=== PATIENT | female | born 1995 | race Caucasian/White ===

== ENCOUNTER 2018-06-16 20:59 | Emergency (ER) | payer OTHER ==
[2018-06-16] MEDS ORDERED: Sodium Chloride 0.9% 1000 ML 1,000 ML IV STA (21:51)
--- NOTE | 2018-06-16 21:54 | ERPHSYRPT ---
- History of Present Illness Time Seen by Provider: 06/16/18 21:46 Historian: patient Exam Limitations: no limitations Patient Subjective Stated Complaint: PT C/O RT FLANK PAIN STARTING TODAY 1430, ACCOMPANYIED BY NAUSEA, VOMIT X 2, AND PELVIC PAIN. HX KIDNEY STONE PT STATES "IT FEELS LIKE WHEN I HAD A KIDNEY STONE BACK IN FEBRUARY". DENIES FEVER, DENIES PAINFUL URINATION. Triage Nursing Assessment: PINK/WARM/DRY, RESP EASY, A&OX4, STEADY GAIT, NO DISTRESS NOTED AT THIS TIME. Physician History: 22-year-old white female with history of diabetes type 2, psoriasis, who has a history of kidney stones arrives with complaint of right flank pain described as sharp and a pressure symptoms going on since 2:30 this evening. She denies any urinary symptoms. She does state that she had 2 episodes of vomiting. Past medical history includes diabetes type 2, psoriasis. Past surgical history includes tonsillectomy. Patient states she has not had a period for some time she is on Depo-Provera shots Timing/Duration: today (this afternoon) Activities at Onset: none Quality: pressure, sharpness Abdominal Pain Onset Location: flank (right flank) Pain Radiation: no radiation Severity of Pain-Max: moderate Severity of Pain-Current: moderate Modifying Factors: Improves With: nothing Associated Symptoms: back (right flank pain), nausea, vomiting, No chest pain, No diaphoresis, No diarrhea, No fever/chills, No fatigue, No headache, No heartburn, No loss of appetite, No neck pain, No rash, No shortness of breath, No syncope, No weakness Previous symptoms: same symptoms as today (kidney stone in the past) Allergies/Adverse Reactions: No Known Drug Allergies Allergy (Unverified 06/16/18 21:07) Home Medications: Metformin HCl Xr 500 mg [Glucophage XR 500 MG] 2 tab PO DAILY 06/16/18 [ History] Hx Tetanus, Diphtheria Vaccination/Date Given: Yes Hx Influenza Vaccination/Date Given: No Hx Pneumococcal Vaccination/Date Given: No Immunizations Up to Date: Yes - Review of Systems Constitutional: No Fever, No Chills Eyes: No Symptoms Ears, Nose, & Throat: No Symptoms Respiratory: No Cough, No Dyspnea Cardiac: No Chest Pain, No Edema, No Syncope Abdominal/Gastrointestinal: Abdominal Pain (lower abdominal cramping), Nausea, Vomiting, Other (right flank pain), No Diarrhea, No Constipation, No Hematemesis , No Hematochezia, No Melena, No Dysphagia, No Appetite Changes Genitourinary Symptoms: Flank Pain (right flank pain), No Dysuria, No Frequency , No Hematuria, No Hesitancy, No Incontinence, No Urgency, No Urinary Retention Musculoskeletal: No Back Pain, No Neck Pain Skin: No Rash Neurological: No Dizziness, No Focal Weakness, No Sensory Changes Psychological: No Symptoms Endocrine: No Symptoms All Other Systems: Reviewed and Negative - Past Medical History Pertinent Past Medical History: Yes Endocrine Medical History: Diabetes Type II Other Medical History: PSORIASIS - Past Surgical History Past Surgical History: Yes - Social History Smoking Status: Never smoker Exposure to second hand smoke: Yes Drug Use: marijuana Patient Lives Alone: No - Female History Hx Last Menstrual Period: "YEARS, ON DEPO SHOT" Hx Now: No - Nursing Vital Signs Nursing Vital Signs: Initial Vital Signs Temperature 98.0 F 06/16/18 21:09 Pulse Rate 102 H 06/16/18 21:09 Respiratory Rate 16 06/16/18 21:09 Blood Pressure 170/92 06/16/18 21:09 O2 Sat by Pulse Oximetry 99 06/16/18 21:09 Pain Scale Pain Intensity 3 - Physical Exam General Appearance: no apparent distress, alert Eye Exam: PERRL/EOMI, eyes nml inspection Ears, Nose, Throat Exam: normal ENT inspection, pharynx normal, moist mucous membranes Neck Exam: normal inspection, non-tender, supple, full range of motion Respiratory Exam: normal breath sounds, lungs clear, No respiratory distress Cardiovascular Exam: regular rate/rhythm, normal heart sounds, capillary refill <2 sec Gastrointestinal/Abdomen Exam: soft, normal bowel sounds, No tenderness, No mass Back Exam: CVA tenderness (right flank tenderness) Extremity Exam: normal inspection, normal range of motion, pelvis stable Neurologic Exam: alert, oriented x 3, cooperative, 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 Additional nonobstrucive right nephro lithiasis.) Ordered Tests: Active Orders 24 hr Category Date Time Status IV Insertion STAT Care 06/16/18 21:16 Active ABDOMEN AND PELVIS W/0 CONTRAS [CT] Stat Exams 06/16/18 23:40 Taken AMYLASE Stat Lab 06/16/18 21:10 Completed CBC W DIFF Stat Lab 06/16/18 21:10 Completed CMP Stat Lab 06/16/18 21:10 Completed CULTURE,URINE Stat Lab 06/16/18 22:30 Received HCG QUALITATIVE,SERUM Stat Lab 06/16/18 21:10 Completed LIPASE Stat Lab 06/16/18 21:10 Completed UA W/RFX UR CULTURE Stat Lab 06/16/18 22:30 Completed Medication Summary Discontinued Medications Generic Name Dose Route Start Last Admin Trade Name Freq PRN Reason Stop Dose Admin Sodium Chloride 1,000 mls @ 999 mls/hr 06/16/18 21:51 06/16/18 23:30 Sodium Chloride 0.9% 1000 Ml IV 06/16/18 22:51 Infused .Q1H1M STA Infusion Sodium Chloride Confirm 06/16/18 22:26 Sodium Chloride 0.9% 1000 Ml Administered 06/16/18 22:27 Dose 1,000 mls @ ud .ROUTE .STK-MED ONE Lab/Rad Data: Laboratory Result Diagrams 06/16/18 21:10 06/16/18 21:10 Laboratory Results 06/16/18 06/16/18 06/16/18 Range/Units 22:30 21:10 21:10 WBC (4.0-10.5) K/mm3 RBC (4.1-5.4) M/mm3 Hgb (12.0-16.0) gm/dl Hct (35-47) % MCV (78-100) fl MCH (26-32) pg MCHC (32-36) g/dl RDW (11.5-14.0) % Plt Count (150-450) K/mm3 MPV (6-9.5) fl Gran % (36.0-66.0) % Eos # (Auto) (0-0.5) Absolute Lymphs (auto) (1.0-4.6) Absolute Monos (auto) (0.0-1.3) Lymphocytes % (24.0-44.0) % Monocytes % (0.0-12.0) % Eosinophils % (0.00-5.0) % Basophils % (0.0-0.4) % Absolute Granulocytes (1.4-6.9) Basophils # (0-0.4) Sodium 142 (137-145) mmol/L Potassium 3.5 (3.5-5.1) mmol/L Chloride 106 (98-107) mmol/L Carbon Dioxide 24 (22-30) mmol/L Anion Gap 15.8 H (5-15) MEQ/L BUN 15 (7-17) mg/dL Creatinine 0.79 (0.52-1.04) mg/dL Estimated GFR > 60.0 ML/MIN Glucose 85 (74-106) mg/dL Calcium 10.0 (8.4-10.2) mg/dL Total Bilirubin 0.30 (0.2-1.3) mg/dL AST 18 (14-36) U/L ALT 23 (0-35) U/L Alkaline Phosphatase 104 (38-126) U/L Serum Total Protein 8.8 H (6.3-8.2) g/dL Albumin 4.6 (3.5-5.0) g/dL Amylase 62 (30-110) U/L Lipase 176 (23-300) U/L Serum , Qual NEGATIVE (Negative) Urine Color YELLOW (YELLOW) Urine Appearance CLOUDY (CLEAR) Urine pH 5.0 (5-6) Ur Specific [place] 1.033 (1.005-1.025) Urine Protein 100 (Negative) Urine Ketones NEGATIVE (NEGATIVE) Urine Blood LARGE (0-5) Artie/ul Urine Nitrite NEGATIVE (NEGATIVE) Urine Bilirubin NEGATIVE (NEGATIVE) Urine Urobilinogen NEGATIVE (0-1) mg/dL Ur Leukocyte Esterase NEGATIVE (NEGATIVE) Urine WBC (Auto) 26-50 (0-5) /HPF Urine RBC (Auto) >101 (0-2) /HPF U Epithel Cells (Auto) NONE (FEW) /HPF Urine Bacteria (Auto) FEW (NEGATIVE) /HPF Calcium Oxalate Crystal 11-25 (NEGATIVE) /HPF Urine Mucus (Auto) MANY (NEGATIVE) /HPF Urine Culture Reflexed YES (NO) Urine Glucose NEGATIVE (NEGATIVE) mg/dL 06/16/18 Range/Units 21:10 WBC 14.4 H (4.0-10.5) K/mm3 RBC 5.17 (4.1-5.4) M/mm3 Hgb 13.8 (12.0-16.0) gm/dl Hct 42.3 (35-47) % MCV 81.8 (78-100) fl MCH 26.7 (26-32) pg MCHC 32.6 (32-36) g/dl RDW 13.9 (11.5-14.0) % Plt Count 378 (150-450) K/mm3 MPV 10.8 H (6-9.5) fl Gran % 62.7 (36.0-66.0) % Eos # (Auto) 0.18 (0-0.5) Absolute Lymphs (auto) 4.04 (1.0-4.6) Absolute Monos (auto) 1.11 (0.0-1.3) Lymphocytes % 28.1 (24.0-44.0) % Monocytes % 7.7 (0.0-12.0) % Eosinophils % 1.3 (0.00-5.0) % Basophils % 0.2 (0.0-0.4) % Absolute Granulocytes 9.01 H (1.4-6.9) Basophils # 0.03 (0-0.4) Sodium (137-145) mmol/L Potassium (3.5-5.1) mmol/L Chloride (98-107) mmol/L Carbon Dioxide (22-30) mmol/L Anion Gap (5-15) MEQ/L BUN (7-17) mg/dL Creatinine (0.52-1.04) mg/dL Estimated GFR ML/MIN Glucose (74-106) mg/dL Calcium (8.4-10.2) mg/dL Total Bilirubin (0.2-1.3) mg/dL AST (14-36) U/L ALT (0-35) U/L Alkaline Phosphatase (38-126) U/L Serum Total Protein (6.3-8.2) g/dL Albumin (3.5-5.0) g/dL Amylase (30-110) U/L Lipase (23-300) U/L Serum , Qual (Negative) Urine Color (YELLOW) Urine Appearance (CLEAR) Urine pH (5-6) Ur Specific [place] (1.005-1.025) Urine Protein (Negative) Urine Ketones (NEGATIVE) Urine Blood (0-5) Artie/ul Urine Nitrite (NEGATIVE) Urine Bilirubin (NEGATIVE) Urine Urobilinogen (0-1) mg/dL Ur Leukocyte Esterase (NEGATIVE) Urine WBC (Auto) (0-5) /HPF Urine RBC (Auto) (0-2) /HPF U Epithel Cells (Auto) (FEW) /HPF Urine Bacteria (Auto) (NEGATIVE) /HPF Calcium Oxalate Crystal (NEGATIVE) /HPF Urine Mucus (Auto) (NEGATIVE) /HPF Urine Culture Reflexed (NO) Urine Glucose (NEGATIVE) mg/dL - Progress Progress: improved Progress Note: 06/17/18 00:49 22-year-old white female arrives with complaint of right flank pain also with the positive white blood cells in her urine 26-50 and 101 red cells per high- power field in her urine. Patient's CT of her abdomen is remarkable for a 2 mm calculus at the distal aspect the distal right ureteral vesicular junction with minimal right obstructive uropathy. There is additional nonobstructive right nephrolithiasis. Patient is given IV normal saline as well as Toradol for pain. Will place patient on antibiotics. - Departure Departure Disposition: Home Clinical Impression: Right flank pain UTI (urinary tract infection) Qualifiers: Urinary tract infection type: site unspecified Hematuria presence: with hematuria Qualified Code(s): N39.0 - Urinary tract infection, site not specified ; R31.9 - Hematuria, unspecified Urolithiasis Qualifiers: Urinary calculus location: kidney and ureter Qualified Code(s): N20.2 - Calculus of kidney with calculus of ureter Condition: Fair Critical Care Time: No Referrals: SHANKAR STRANGE [Primary Care Provider] - Instructions: Kidney Stones (DC) Additional Instructions: Return home. Plenty of fluids. Lyons as prescribed. Keflex as prescribed. Follow-up with your family doctor. Strain all urine. Return for acute distress or for severe symptoms.. Prescriptions: Hydrocodone/APAP 5-325 Tab^^^ [Lyons 5-325 Tablet^^^] 1 each PO Q4HPRN PRN #12 tablet MDD 6 PRN Reason: flank pain Cephalexin Mh 500 mg [Keflex 500 mg] 500 mg PO Q6H #28 capsule
[2018-06-16 22:01] LABS: BASOPHIL % 0.2 % (0.0-0.4); Basophil (Absolute #) 0.03 (0-0.4); Eosinophil % 1.3 % (0.00-5.0); Eosinophil (Absolute #) 0.18 (0-0.5); Granulocyte Absolute (ANC) 9.01 (1.4-6.9); Granulocytes % 62.7 % (36.0-66.0); Hematocrit 42.3 % (35-47); Hemoglobin 13.8 gm/dl (12.0-16.0); Lymphocyte (Absolute #) 4.04 (1.0-4.6); Lymphocytes % 28.1 % (24.0-44.0); Mean Cell Volume 81.8 fl (78-100); Mean Corpuscular Hemoglobin 26.7 pg (26-32); Mean Corpuscular Hgb Concent. 32.6 g/dl (32-36); Mean Platelet Volume 10.8 fl (6-9.5); Monocyte (Absolute #) 1.11 (0.0-1.3); Monocytes % 7.7 % (0.0-12.0); Platelet Count 378 K/mm3 (150-450); Red Blood Count 5.17 M/mm3 (4.1-5.4); Red Cell Distribution Width 13.9 % (11.5-14.0); White Blood Count 14.4 K/mm3 (4.0-10.5)
[2018-06-16 22:07] LABS: ALBUMIN 4.6 g/dL (3.5-5.0); ALKALINE PHOSPHATASE 104 U/L (38-126); AMYLASE 62 U/L (30-110); ANION GAP 15.8 MEQ/L (5-15); BLOOD UREA NITROGEN 15 mg/dL (7-17); CHLORIDE 106 mmol/L (98-107); Carbon Dioxide 24 mmol/L (22-30); Creatinine 1 0.79 mg/dL (0.52-1.04); Glucose 85 mg/dL (74-106); LIPASE 176 U/L (23-300); Potassium 3.5 mmol/L (3.5-5.1); SGOT/AST 18 U/L (14-36); SGPT/ALT 23 U/L (0-35); SODIUM 142 mmol/L (137-145); Total Protein 8.8 g/dL (6.3-8.2)
[2018-06-16] MEDS ORDERED: Sodium Chloride 0.9% 1000 ML 1,000 ML ONE (22:26)
[2018-06-16 23:13] LABS: Appearance CLOUDY (CLEAR); Bacteria FEW /HPF (NEGATIVE); Bilirubin NEGATIVE (NEGATIVE); Blood LARGE Ery/ul (0-5); Glucose NEGATIVE (NEGATIVE); Ketones NEGATIVE (NEGATIVE); Leukocyte Esterase NEGATIVE (NEGATIVE); Mucus MANY /HPF (NEGATIVE); Nitrite NEGATIVE (NEGATIVE); Protein,Urine Dip 100 (Negative); Specific Gravity 1.033 (1.005-1.025); Urobilinogen NEGATIVE mg/dL (0-1); WBC 26-50 /HPF (0-5)
[2018-06-16 23:16] LABS: RBC >101 /HPF (0-2)
[2018-06-17] MEDS ORDERED: NORCO 5/325 MG PO ONE (00:54)
[2018-06-17] MEDS ORDERED: KEFLEX 500 MG PO ONE (00:54)
[2018-06-17] MEDS ORDERED: KEFLEX 500 MG ONE (01:01)
[2018-06-17] MEDS ORDERED: NORCO 5/325 MG ONE (01:02)
[2018-06-17 01:10] VITALS: BP 121/80; PULSE 95; O2SAT 97
--- NOTE | 2018-06-17 08:54 | XRAY ---
Indication: Right flank pain. Renal stone. Multiple contiguous axial images obtained through the abdomen and pelvis without contrast as ordered. Comparison: None Lung bases are clear. Heart is not enlarged. Stomach is distended with food/fluid. Noncontrasted stomach and bowel loops appear nonobstructed. Normal appendix. Gallbladder contracted without gallstones. There is a 2-3 mm calculus seen in the posterior right urinary bladder. Right ureter is slightly prominent with minimal hydronephrosis presumed from recent passage of said calculus. Additional 2 mm right renal calculus. Remaining liver, gallbladder, pancreas, spleen, adrenal glands, kidneys, ureters, bladder, uterus, and aorta appear unremarkable for noncontrast exam. Osseous structures intact. No ventral or inguinal hernias. Impression: Urinary bladder micro-calculus with additional findings in the right system related to recent passage. Additional right renal micro-calculus. Comment: Preliminary interpretation was made by [facility]. No discrepancy. CT DI 23.68
== END 2018-06-17 01:30 | disposition home or self-care (01) ==
LOC: ED 20:59
DX: R10.9 Unspecified abdominal pain (principal); N39.0 Urinary tract infection, site not specified; N20.2 Calculus of kidney with calculus of ureter
CPT/HCPCS: 36000; 36415; 74176; 80053; 81001; 81025; 82150; 83690; 85025; 87086; 96360; 99284; A9270-GY

== ENCOUNTER 2019-03-07 05:00 | Emergency (ER) | payer OTHER ==
[2019-03-07] MEDS ORDERED: Adenocard IV 6 MG/2 ML IV ONE ×4 (05:13→05:33)
[2019-03-07] MEDS ORDERED: Sodium Chloride 0.9% 1000 ML 1,000 ML IV STA ×2 (05:13→06:49)
[2019-03-07] MEDS ORDERED: Sodium Chloride 0.9% 1000 ML 1,000 ML ONE ×2 (05:14→07:08)
[2019-03-07] MEDS ORDERED: LOPRESSOR 5 MG/5 ML INJECTION IV ONE ×6 (05:28→07:00)
[2019-03-07 05:33] LABS: Hematocrit 43.5 % (35-47); Hemoglobin 14.4 gm/dl (12.0-16.0); Mean Cell Volume 81.8 fl (78-100); Mean Corpuscular Hemoglobin 27.1 pg (26-32); Mean Corpuscular Hgb Concent. 33.1 g/dl (32-36); Mean Platelet Volume 10.3 fl (7.5-11.0); Platelet Count 258 K/mm3 (150-450); Red Blood Count 5.32 M/mm3 (4.1-5.4); Red Cell Distribution Width 14.3 % (11.5-14.0); White Blood Count 7.3 K/mm3 (4.0-10.5)
[2019-03-07 05:43] LABS: INR 1.23 (0.8-3.0); PROTIME 13.9 SECONDS (9.95-12.35)
[2019-03-07 05:56] LABS: ALBUMIN 4.5 g/dL (3.5-5.0); ALKALINE PHOSPHATASE 101 U/L (38-126); AMYLASE 55 U/L (30-110); ANION GAP 14.1 MEQ/L (5-15); BLOOD UREA NITROGEN 6 mg/dL (7-17); CHLORIDE 104 mmol/L (98-107); Calcium 9.7 mg/dL (8.4-10.2); Carbon Dioxide 23 mmol/L (22-30); Creatinine 1 0.61 mg/dL (0.52-1.04); Glucose 135 mg/dL (74-106); LIPASE 178 U/L (23-300); NT PRO BNP 30.4 pg/mL (0-450); Potassium 4.2 mmol/L (3.5-5.1); SGOT/AST 36 U/L (14-36); SGPT/ALT 30 U/L (0-35); SODIUM 137 mmol/L (137-145); Total Protein 8.6 g/dL (6.3-8.2)
--- NOTE | 2019-03-07 06:47 | ERPHSYRPT ---
<SOPHIE JIMENEZ - Last Filed: 03/07/19 06:53> - History of Present Illness Time Seen by Provider: 03/07/19 05:30 Patient Subjective Stated Complaint: pt states while resting in bed this morning she began having chest pain radiating to her linda and pressure in her head. Triage Nursing Assessment: pt alert and oriented, asnwers questions approp. pt ambulatory with steady gait noted. respirations nonlabored with lungs cta. pt cool, diaphoretic. heart rate 150's on monitor. Physician History: ppatient is a 23-year-old white female presents with 45 minutes of chest pain. The chest pain seems to come and go she has had some cold sweats but she denies nausea vomiting or shortness of breath. Risk factors are negative. Timing/Duration: today Activities at Onset: none Quality: sharpness, stabbing Location: substernal Chest Pain Radiation: no radiation Severity of Pain-Max: mild Severity of Pain-Current: mild Modifying Factors: Improves With: nothing Associated Symptoms: denies symptoms Prior Chest Pain/Cardiac Workup: no prior cardiac workup Nitro Today/Relief: no nitro taken today Aspirin Treatment Today: no aspirin today Allergies/Adverse Reactions: No Known Drug Allergies Allergy (Unverified 06/16/18 21:07) Home Medications: Metformin HCl Xr 500 mg [Glucophage XR 500 MG] 2 tab PO DAILY 06/16/18 [ History] Hx Tetanus, Diphtheria Vaccination/Date Given: Yes Hx Influenza Vaccination/Date Given: No Hx Pneumococcal Vaccination/Date Given: No Immunizations Up to Date: Yes - Review of Systems Constitutional: No Fever, No Chills Eyes: No Symptoms Ears, Nose, & Throat: No Symptoms Respiratory: No Cough, No Dyspnea Cardiac: Chest Pain, No Edema, No Syncope Abdominal/Gastrointestinal: No Abdominal Pain, No Nausea, No Vomiting, No Diarrhea Genitourinary Symptoms: No Dysuria Musculoskeletal: No Back Pain, No Neck Pain Skin: No Rash Neurological: No Dizziness, No Focal Weakness, No Sensory Changes Psychological: No Symptoms Endocrine: No Symptoms All Other Systems: Reviewed and Negative - Past Medical History Pertinent Past Medical History: Yes Endocrine Medical History: Diabetes Type II Other Medical History: PSORIASIS. insulin resistance - Past Surgical History Past Surgical History: Yes - Social History Smoking Status: Never smoker Exposure to second hand smoke: Yes Drug Use: none Patient Lives Alone: No - Female History Hx Last Menstrual Period: depo shot Hx Now: No - Nursing Vital Signs Nursing Vital Signs: Initial Vital Signs Temperature 97.8 F 03/07/19 05:16 Pulse Rate 147 H 03/07/19 05:16 Respiratory Rate 18 03/07/19 05:16 Blood Pressure 158/102 03/07/19 05:16 O2 Sat by Pulse Oximetry 98 03/07/19 05:16 Pain Scale Pain Intensity 0 - Physical Exam General Appearance: no apparent distress, alert Eye Exam: PERRL/EOMI, eyes nml inspection Ears, Nose, Throat Exam: normal ENT inspection, moist mucous membranes Neck Exam: normal inspection, non-tender, supple, full range of motion Respiratory Exam: normal breath sounds, lungs clear, No respiratory distress Cardiovascular Exam: normal heart sounds, tachycardia Gastrointestinal/Abdomen Exam: soft, No tenderness, No mass Back Exam: normal inspection, No CVA tenderness, No vertebral tenderness Extremity Exam: normal inspection, normal range of motion Neurologic Exam: alert, oriented x 3, cooperative, normal mood/affect, sensation nml, No motor deficits Skin Exam: normal color, warm, dry SpO2: 99 - Course Nursing assessment & vital signs reviewed: Yes EKG Interpreted by Me: RATE ([id number]), Sinus Tach, NORMAL AXIS, NORMAL INTERVALS, NORMAL QRS, Non-specific ST Changes Ordered Tests: Active Orders 24 hr Category Date Time Status CHEST 1 VIEW (PORTABLE) Stat Exams 03/07/19 05:04 Completed AMYLASE Stat Lab 03/07/19 05:31 Completed CBC W DIFF Stat Lab 03/07/19 05:31 Completed CMP Stat Lab 03/07/19 05:31 Completed CULTURE,URINE Stat Lab 03/07/19 07:55 Received HCG QUALITATIVE,SERUM Stat Lab 03/07/19 05:31 Completed LIPASE Stat Lab 03/07/19 05:31 Completed MAGNESIUM Stat Lab 03/07/19 05:31 Completed Manual Differential NC Stat Lab 03/07/19 05:31 Completed NT PRO BNP Stat Lab 03/07/19 05:31 Completed PROTIME WITH INR Stat Lab 03/07/19 05:31 Completed TROPONIN Q3H Lab 03/07/19 05:31 Completed TSH [TSH, 3RD Generation] Stat Lab 03/07/19 05:13 Completed UA W/RFX UR CULTURE Stat Lab 03/07/19 07:55 Completed Urine Triage Profile Stat Lab 03/07/19 07:55 Completed Medication Summary Discontinued Medications Generic Name Dose Route Start Last Admin Trade Name Emmanuel PRN Reason Stop Dose Admin Adenosine Confirm 03/07/19 05:14 Adenocard Iv 6 Mg/2 Ml Administered 03/07/19 05:15 Dose 6 mg IV .STK-MED ONE Adenosine 6 mg 03/07/19 05:13 03/07/19 05:24 Adenocard Iv 6 Mg/2 Ml IV 03/07/19 05:14 6 mg STAT ONE Administration Adenosine Confirm 03/07/19 05:25 Adenocard Iv 6 Mg/2 Ml Administered 03/07/19 05:26 Dose 12 mg IV .STK-MED ONE Adenosine 12 mg 03/07/19 05:33 03/07/19 05:27 Adenocard Iv 6 Mg/2 Ml IV 03/07/19 05:34 12 mg STAT ONE Administration Ciprofloxacin 500 mg 03/07/19 08:21 Cipro 500 Mg PO 03/07/19 08:22 STAT ONE Sodium Chloride Confirm 03/07/19 05:14 Sodium Chloride 0.9% 1000 Ml Administered 03/07/19 05:15 Dose 1,000 mls @ ud .ROUTE .STK-MED ONE Sodium Chloride 1,000 mls @ 999 mls/hr 03/07/19 05:13 03/07/19 07:29 Sodium Chloride 0.9% 1000 Ml IV 03/07/19 06:13 Infused .Q1H1M STA Infusion Sodium Chloride 1,000 mls @ 999 mls/hr 03/07/19 06:49 03/07/19 07:29 Sodium Chloride 0.9% 1000 Ml IV 03/07/19 07:49 999 mls/hr .Q1H1M STA Administration Sodium Chloride Confirm 03/07/19 07:08 Sodium Chloride 0.9% 1000 Ml Administered 03/07/19 07:09 Dose 1,000 mls @ ud .ROUTE .STK-MED ONE Lorazepam 2 mg 03/07/19 07:32 03/07/19 07:35 Ativan 1 Mg PO 03/07/19 07:33 1 mg STAT ONE Administration Lorazepam Confirm 03/07/19 07:34 Ativan 1 Mg Administered 03/07/19 07:35 Dose 1 mg .ROUTE .STK-MED ONE Metoprolol Succinate 50 mg 03/07/19 06:49 03/07/19 07:37 Toprol Xl 50 Mg PO 03/07/19 06:50 50 mg ONCE STA Administration Metoprolol Succinate Confirm 03/07/19 07:36 Toprol-Xl 25mg Tablets Administered 03/07/19 07:37 Dose 50 mg .ROUTE .STK-MED ONE Metoprolol Tartrate 5 mg 03/07/19 05:28 03/07/19 05:30 Lopressor 5 Mg/5 Ml Injection IV 03/07/19 05:29 5 mg STAT ONE Administration Metoprolol Tartrate Confirm 03/07/19 05:29 Lopressor 5 Mg/5 Ml Injection Administered 03/07/19 05:30 Dose 5 mg IV .STK-MED ONE Metoprolol Tartrate 5 mg 03/07/19 05:50 03/07/19 06:01 Lopressor 5 Mg/5 Ml Injection IV 03/07/19 05:51 5 mg STAT ONE Administration Metoprolol Tartrate Confirm 03/07/19 06:00 Lopressor 5 Mg/5 Ml Injection Administered 03/07/19 06:01 Dose 5 mg IV .STK-MED ONE Metoprolol Tartrate 5 mg 03/07/19 06:15 03/07/19 07:02 Lopressor 5 Mg/5 Ml Injection IV 03/07/19 06:16 5 mg STAT ONE Administration Metoprolol Tartrate Confirm 03/07/19 07:00 Lopressor 5 Mg/5 Ml Injection Administered 03/07/19 07:01 Dose 5 mg IV .STK-MED ONE Metoprolol Tartrate Confirm 03/07/19 07:33 Lopressor 50 Mg Administered 03/07/19 07:34 Dose 50 mg .ROUTE .STK-MED ONE Lab/Rad Data: Laboratory Result Diagrams 03/07/19 05:31 03/07/19 05:31 Laboratory Results 03/07/19 03/07/19 03/07/19 Range/Units 07:55 07:55 05:31 WBC (4.0-10.5) K/mm3 RBC (4.1-5.4) M/mm3 Hgb (12.0-16.0) gm/dl Hct (35-47) % MCV (78-100) fl MCH (26-32) pg MCHC (32-36) g/dl RDW (11.5-14.0) % Plt Count (150-450) K/mm3 MPV (7.5-11.0) fl Segmented Neutrophils (36.0-66.0) % Lymphocytes (Manual) (24-44) % Monocytes (Manual) (0.0-12.0) % Platelet Estimate (NORMAL) RBC Morphology PT (9.95-12.35) SECONDS INR (0.8-3.0) Sodium (137-145) mmol/L Potassium (3.5-5.1) mmol/L Chloride (98-107) mmol/L Carbon Dioxide (22-30) mmol/L Anion Gap (5-15) MEQ/L BUN (7-17) mg/dL Creatinine (0.52-1.04) mg/dL Estimated GFR ML/MIN Glucose (74-106) mg/dL Calcium (8.4-10.2) mg/dL Magnesium (1.6-2.3) mg/dL Total Bilirubin (0.2-1.3) mg/dL AST (14-36) U/L ALT (0-35) U/L Alkaline Phosphatase (38-126) U/L Troponin I (0.000-0.034) ng/mL NT-Pro-B Natriuret Pep (0-450) pg/mL Serum Total Protein (6.3-8.2) g/dL Albumin (3.5-5.0) g/dL Amylase (30-110) U/L Lipase (23-300) U/L TSH 3rd Generation (0.47-4.68) mIU/L Serum , Qual NEGATIVE (Negative) Urine Color YELLOW (YELLOW) Urine Appearance CLOUDY (CLEAR) Urine pH 7.0 (5-6) Ur Specific [place] 1.008 (1.005-1.025) Urine Protein NEGATIVE (Negative) Urine Ketones NEGATIVE (NEGATIVE) Urine Blood NEGATIVE (0-5) Artie/ul Urine Nitrite NEGATIVE (NEGATIVE) Urine Bilirubin NEGATIVE (NEGATIVE) Urine Urobilinogen NORMAL (0-1) mg/dL Ur Leukocyte Esterase LARGE (NEGATIVE) Urine WBC (Auto) 6-10 (0-5) /HPF Urine RBC (Auto) 6-10 (0-2) /HPF U Epithel Cells (Auto) MODERATE (FEW) /HPF Urine Bacteria (Auto) MODERATE (NEGATIVE) /HPF Urine Mucus (Auto) SLIGHT (NEGATIVE) /HPF Urine Culture Reflexed YES (NO) Urine Glucose NEGATIVE (NEGATIVE) mg/dL Urine Opiates Level NEGATIVE (NEGATIVE) Ur Methadone NEGATIVE (NEGATIVE) Urine Barbiturates NEGATIVE (NEGATIVE) Ur Phencyclidine (PCP) NEGATIVE (NEGATIVE) Urine Amphetamine NEGATIVE (NEGATIVE) U Benzodiazepine Level NEGATIVE (NEGATIVE) Urine Cocaine NEGATIVE (NEGATIVE) Urine Marijuana (THC) NEGATIVE (NEGATIVE) 03/07/19 03/07/19 03/07/19 Range/Units 05:31 05:31 05:31 WBC (4.0-10.5) K/mm3 RBC (4.1-5.4) M/mm3 Hgb (12.0-16.0) gm/dl Hct (35-47) % MCV (78-100) fl MCH (26-32) pg MCHC (32-36) g/dl RDW (11.5-14.0) % Plt Count (150-450) K/mm3 MPV (7.5-11.0) fl Segmented Neutrophils (36.0-66.0) % Lymphocytes (Manual) (24-44) % Monocytes (Manual) (0.0-12.0) % Platelet Estimate (NORMAL) RBC Morphology PT 13.9 H (9.95-12.35) SECONDS INR 1.23 (0.8-3.0) Sodium 137 (137-145) mmol/L Potassium 4.2 (3.5-5.1) mmol/L Chloride 104 (98-107) mmol/L Carbon Dioxide 23 (22-30) mmol/L Anion Gap 14.1 (5-15) MEQ/L BUN 6 L (7-17) mg/dL Creatinine 0.61 (0.52-1.04) mg/dL Estimated GFR > 60.0 ML/MIN Glucose 135 H (74-106) mg/dL Calcium 9.7 (8.4-10.2) mg/dL Magnesium 2.0 (1.6-2.3) mg/dL Total Bilirubin 0.50 (0.2-1.3) mg/dL AST 36 (14-36) U/L ALT 30 (0-35) U/L Alkaline Phosphatase 101 (38-126) U/L Troponin I < 0.012 (0.000-0.034) ng/mL NT-Pro-B Natriuret Pep 30.4 (0-450) pg/mL Serum Total Protein 8.6 H (6.3-8.2) g/dL Albumin 4.5 (3.5-5.0) g/dL Amylase 55 (30-110) U/L Lipase 178 (23-300) U/L TSH 3rd Generation (0.47-4.68) mIU/L Serum , Qual (Negative) Urine Color (YELLOW) Urine Appearance (CLEAR) Urine pH (5-6) Ur Specific [place] (1.005-1.025) Urine Protein (Negative) Urine Ketones (NEGATIVE) Urine Blood (0-5) Artie/ul Urine Nitrite (NEGATIVE) Urine Bilirubin (NEGATIVE) Urine Urobilinogen (0-1) mg/dL Ur Leukocyte Esterase (NEGATIVE) Urine WBC (Auto) (0-5) /HPF Urine RBC (Auto) (0-2) /HPF U Epithel Cells (Auto) (FEW) /HPF Urine Bacteria (Auto) (NEGATIVE) /HPF Urine Mucus (Auto) (NEGATIVE) /HPF Urine Culture Reflexed (NO) Urine Glucose (NEGATIVE) mg/dL Urine Opiates Level (NEGATIVE) Ur Methadone (NEGATIVE) Urine Barbiturates (NEGATIVE) Ur Phencyclidine (PCP) (NEGATIVE) Urine Amphetamine (NEGATIVE) U Benzodiazepine Level (NEGATIVE) Urine Cocaine (NEGATIVE) Urine Marijuana (THC) (NEGATIVE) 03/07/19 03/07/19 Range/Units 05:31 05:13 WBC 7.3 (4.0-10.5) K/mm3 RBC 5.32 (4.1-5.4) M/mm3 Hgb 14.4 (12.0-16.0) gm/dl Hct 43.5 (35-47) % MCV 81.8 (78-100) fl MCH 27.1 (26-32) pg MCHC 33.1 (32-36) g/dl RDW 14.3 H (11.5-14.0) % Plt Count 258 (150-450) K/mm3 MPV 10.3 H (7.5-11.0) fl Segmented Neutrophils 89 H (36.0-66.0) % Lymphocytes (Manual) 8 L (24-44) % Monocytes (Manual) 3 (0.0-12.0) % Platelet Estimate NORMAL (NORMAL) RBC Morphology NORMAL PT (9.95-12.35) SECONDS INR (0.8-3.0) Sodium (137-145) mmol/L Potassium (3.5-5.1) mmol/L Chloride (98-107) mmol/L Carbon Dioxide (22-30) mmol/L Anion Gap (5-15) MEQ/L BUN (7-17) mg/dL Creatinine (0.52-1.04) mg/dL Estimated GFR ML/MIN Glucose (74-106) mg/dL Calcium (8.4-10.2) mg/dL Magnesium (1.6-2.3) mg/dL Total Bilirubin (0.2-1.3) mg/dL AST (14-36) U/L ALT (0-35) U/L Alkaline Phosphatase (38-126) U/L Troponin I (0.000-0.034) ng/mL NT-Pro-B Natriuret Pep (0-450) pg/mL Serum Total Protein (6.3-8.2) g/dL Albumin (3.5-5.0) g/dL Amylase (30-110) U/L Lipase (23-300) U/L TSH 3rd Generation 0.871 (0.47-4.68) mIU/L Serum , Qual (Negative) Urine Color (YELLOW) Urine Appearance (CLEAR) Urine pH (5-6) Ur Specific [place] (1.005-1.025) Urine Protein (Negative) Urine Ketones (NEGATIVE) Urine Blood (0-5) Artie/ul Urine Nitrite (NEGATIVE) Urine Bilirubin (NEGATIVE) Urine Urobilinogen (0-1) mg/dL Ur Leukocyte Esterase (NEGATIVE) Urine WBC (Auto) (0-5) /HPF Urine RBC (Auto) (0-2) /HPF U Epithel Cells (Auto) (FEW) /HPF Urine Bacteria (Auto) (NEGATIVE) /HPF Urine Mucus (Auto) (NEGATIVE) /HPF Urine Culture Reflexed (NO) Urine Glucose (NEGATIVE) mg/dL Urine Opiates Level (NEGATIVE) Ur Methadone (NEGATIVE) Urine Barbiturates (NEGATIVE) Ur Phencyclidine (PCP) (NEGATIVE) Urine Amphetamine (NEGATIVE) U Benzodiazepine Level (NEGATIVE) Urine Cocaine (NEGATIVE) Urine Marijuana (THC) (NEGATIVE) - Progress Progress: improved Air Movement: good Blood Culture(s) Obtained: No Antibiotics given: No - Departure Clinical Impression: Heart palpitations, Stress and adjustment reaction, UTI (urinary tract infection) due to Enterococcus Condition: Stable Referrals: SHANKAR STRANGE [Primary Care Provider] - Instructions: Anxiety, Adult (DC), Palpitations (DC) Additional Instructions: Discharge/Care Plan CATHERINE ANTHONY was seen on 03/07/19 in the Emergency Room. The patient was counseled regarding Diagnosis,Lab results, Imaging studies, need for follow up and when to return to the Emergency Room. Prescriptions given: Discharge Note I have spoken with the patient and/or caregivers. I have explained the patient' s condition, diagnosis and treatment plan based on the information available to me at this time. I have answered the patient's and/or caregiver's questions and addressed any concerns. The patient and/or caregivers have as good understanding of the patient's diagnosis, condition and treatment plan as can be expected at this point. The vital signs have been stable. The patient's condition is stable and appropriate for discharge from the emergency department. The patient will pursue further outpatient evaluation with the primary care physician or other designated or consulting physician as outlined in the discharge instructions. The patient and/or caregivers are agreeable to this plan of care and follow-up instructions have been explained in detail. The patient and/or caregivers have received these instruction. The patient/and or caregivers are aware that any significant change in condition or worsening of symptoms should prompt an immediate return to this or the closest emergency department or call 911. CATHERINE ANTHONY was seen on 03/07/19 n the Emergency Room. At that time you were treated for an emergent condition, during your visit Laboratory, Radiology and/ or other procedures may have been ordered. It is very important that you follow- up with your Primary Care Physician SHANKAR STRANGE within the next 24-48 hours to review your Emergency Room visit and the final results of testing that was ordered. Some test results such as Urine Cultures, Blood Cultures, and other cultures if ordered will not be finalized for 24-48 hours. If you do not have a Primary Care Provider please call the medical records department at [phone] to obtain a copy of your results or you may sign into our patient portal to obtain these results by visiting us @ [email or web address] and completing the following steps: 1. Click on the Patient Portal link 2. Click the Patient Self Enrollment Link to complete the enrollment form and entering your 3. Once the enrollment form is completed you will receive an email with a temporary ID and password at the email address you provided. 4. Next choose a user name and password. Your user name must be at least 4 characters long and your password must be at least 4 characters long. 5. Choose a security question from the list and provide your answer to the question. If you already have signed into the Health Portal you may access your Health Care Information 24/09 by the following steps: 1. Login to our website @ [email or web address] 2. Enter your original user name and password. FAQS The [facility] Health Portal is an online tool that contains your Lab Results, Radiology Reports, Visit History, Discharge Instructions and Health Summary Lab and Radiology Results will not be available for 72 hours on the portal. The Portal is a secure site, passwords are encryted and URLs are re-written so they cannot be copied and pasted. You and authorized family members are the only ones who can access your Portal. Also there is a timeout feature that protects your information if you leave the Portal page open. If you have technical difficulty please use the Contact Us link on the page this will allow you to submit any questions you have regarding the Portal or you may contact the Medical Record Department at [phone]. Prescriptions: Buspirone HCl 5 mg [Buspar 5 mg] 5 mg PO BID #60 tablet Ciprofloxacin [Cipro 500 MG] 500 mg PO BIDAC #20 tablet Metoprolol Tartrate 25 mg [Lopressor 25MG Tab] 25 mg PO DAILY 30 Days #30 tab <FATUMA PONCE - Last Filed: 03/07/19 08:24> - History of Present Illness Physician History: Patient seen examined, doing better - Progress Progress Note: 03/07/19 07:41 doing better Counseled pt/family regarding: lab results, diagnosis, need for follow-up, rad results - Departure Departure Disposition: Home Critical Care Time: Yes Critical Care Time(excluding separately billable procedures): Critical 30-74 mins
[2019-03-07] MEDS ORDERED: Toprol Xl 50 MG PO STA (06:49)
[2019-03-07 06:56] LABS: Lymphocytes 8 % (24-44); Monocyte 3 % (0.0-12.0); Neutrophils 89 % (36.0-66.0); Total Cells Counted 100
[2019-03-07 06:57] LABS: Platelet Estimate NORMAL (NORMAL)
[2019-03-07] MEDS ORDERED: Ativan 1 MG PO ONE (07:32)
[2019-03-07] MEDS ORDERED: Lopressor 50 MG ONE (07:33)
[2019-03-07] MEDS ORDERED: Ativan 1 MG ONE (07:34)
[2019-03-07] MEDS ORDERED: Toprol-Xl 25MG Tablets ONE (07:36)
[2019-03-07 07:41] VITALS: O2SAT 98
--- NOTE | 2019-03-07 07:51 | XRAY ---
Indication: Chest pain. Comparison: None Portable chest demonstrates normal heart, lungs, and bony thorax.
[2019-03-07 08:09] LABS: Appearance CLOUDY (CLEAR); Bilirubin NEGATIVE (NEGATIVE); Blood NEGATIVE Ery/ul (0-5); Glucose NEGATIVE (NEGATIVE); Ketones NEGATIVE (NEGATIVE); Leukocyte Esterase LARGE (NEGATIVE); Nitrite NEGATIVE (NEGATIVE); Protein,Urine Dip NEGATIVE (Negative); Specific Gravity 1.008 (1.005-1.025); Urobilinogen NORMAL mg/dL (0-1)
[2019-03-07 08:10] LABS: Amphetamine,Urine NEGATIVE (NEGATIVE); Bacteria MODERATE /HPF (NEGATIVE); Barbiturate,Urine NEGATIVE (NEGATIVE); Benzodiazepine,Urine NEGATIVE (NEGATIVE); Cocaine,Urine NEGATIVE (NEGATIVE); Epithelial Cells MODERATE /HPF (FEW); Methadone,Urine NEGATIVE (NEGATIVE); Mucus SLIGHT /HPF (NEGATIVE); Opiate,Urine NEGATIVE (NEGATIVE); PCP,Urine NEGATIVE (NEGATIVE); THC,Urine NEGATIVE (NEGATIVE)
[2019-03-07] MEDS ORDERED: Cipro 500 MG PO ONE (08:21)
[2019-03-07] MEDS ORDERED: Cipro 500 MG ONE (08:25)
[2019-03-07 08:29] VITALS: BP 123/86; PULSE 106
== END 2019-03-07 08:35 | disposition home or self-care (01) ==
LOC: ED 05:00
DX: R00.2 Palpitations (principal); F43.9 Reaction to severe stress, unspecified; F43.20 Adjustment disorder, unspecified; N39.0 Urinary tract infection, site not specified; B95.2 Enterococcus as the cause of diseases classified elsewhere
CPT/HCPCS: 36415; 71045; 80053; 80307; 81001; 81025; 82150; 83690; 83735; 83880; 84443; 84484; 85025; 85610; 87086; 96360; 96361; 96374; 96375; 96376; 99285; 99291; J0153; A9270-GY